=== PATIENT | female | born 1955 | race Caucasian/White ===

== ENCOUNTER 2016-06-05 17:43 | Emergency (ER) | payer BC ==
[~2016-06-05] VITALS: Ht 162.6 cm; Wt 80.4 kg
[~2016-06-05 17:43] MED LIST: AMIODARONE HCL200 MG PO; ASPIRIN325 MG PO; ATORVASTATIN CA40 MG PO; CHANTIX1 MG PO; EXTRA STRENGTH500 M1 PO; LASIX20 MG PO; LEVAQUIN500 MG PO; LO-DOSE ASPIRIN81 M2 PO; OXYCODONE HCL5 MG PO; PERI-COLACE TA1 EACH PO; TOPROL XL25 MG PO; TUMS500 MG PO; ZITHROMAX500 MG PO
[2016-06-05 18:24] LABS: EOSINOPHIL (%) 6.9 % (0-5); EOSINOPHIL COUNT 0.4 K/uL (0-0.3); HEMATOCRIT 40.6 % (36.0-46.0); IMMATURE GRANULOCYTE (%) 0.2 % (0.0-0.7); IMMATURE GRANULOCYTE COUNT 0.1 K/uL; LYMPHOCYTE COUNT 1.9 K/uL (1.0-2.8); MCH 31.2 PG (29.0-34.0); MCHC 34.2 G/DL (30.0-36.0); MONOCYTE (%) 8.3 % (3-12); MONOCYTE COUNT 0.4 K/uL (0-0.8); NEUTROPHIL (%) 46.7 % (45-76); NEUTROPHIL COUNT 2.4 K/uL (1.8-6.4); RBC DIS.WIDTH-CV 13.1 % (11.8-14.6); RBC DIS.WIDTH-SD 42.3 % (39-53); RED BLOOD COUNT 4.46 M/uL (3.80-5.20); WHITE BLOOD COUNT 5.1 K/uL (4.1-10.2)
[2016-06-05 18:47] LABS: CHLORIDE 107 mEq/L (99-109); POTASSIUM 3.7 mEq/L (3.7-5.4); SODIUM 141 mEq/L (136-147)
[2016-06-05 18:49] LABS: GLUCOSE 110 mg/dL (70-99)
[2016-06-05 18:50] LABS: ANION GAP 11 MEQ/L (2-14)
[2016-06-05 18:51] LABS: TOTAL BILIRUBIN 0.4 mg/dL (0.0-1.0)
[2016-06-05 18:52] LABS: ALKALINE PHOSPHATASE 129 IU/L (3-129)
[2016-06-05 18:53] LABS: GFR ESTIMATE (CALCULATED) > 59 mL/min/
[2016-06-05 18:54] LABS: UREA NITROGEN (BUN) 10 mg/dL (9-23)
[2016-06-05 18:56] LABS: LIPASE 53 U/L (1.0-51.0)
[2016-06-05 19:11] LABS: HEMATOLOGY COMMENT 1 UNABLE TO REPORT; USER ID WCD
[2016-06-05 19:12] LABS: MEAN PLAT.VOLUME 11.2 uM^3 (9.5-12.4)
[2016-06-05 20:17] LABS: ADD MIUA? YES; BILIRUBIN NEGATIVE; BLOOD NEGATIVE; COLOR YELLOW ((YELLOW)); GLUCOSE (STRIP) NEGATIVE; KETONES NEGATIVE; LEUKOCYTES LARGE; NITRITE NEGATIVE; PROTEIN (STRIP) NEGATIVE; SPECIFIC GRAVITY 1.009 (1.000-1.030); UROBILINOGEN 0.2 MG/DL (0.2-1.0)
[2016-06-05 20:22] LABS: BACTERIA RARE /HPF; EPITHELIAL CELLS RARE /HPF; MUCUS TRACE /LPF; RED BLOOD CELLS 0-5 /HPF (0-5)
[2016-06-05] MEDS ORDERED: ZOFRAN ODT4 MG PO (20:30)
[2016-06-05] MEDS ORDERED: ULTRACET1 TABLET PO (20:30)
[2016-06-05 20:50] VITALS: BP 150/70
== END 2016-06-05 20:51 | disposition home or self-care (01) ==
LOC: EME 17:43 → RME 17:43
PROVIDERS: Physician Assistant
DX: K80.70 Calculus of gallbladder and bile duct without cholecystitis without obstruction (principal); K82.4 Cholesterolosis of gallbladder; I25.10 Atherosclerotic heart disease of native coronary artery without angina pectoris; E78.5 Hyperlipidemia, unspecified; Z95.2 Presence of prosthetic heart valve; Z87.891 Personal history of nicotine dependence; Z88.0 Allergy status to penicillin
CPT/HCPCS: 76705; 80053; 81003; 83690; 85025; 87077; 87086; 87186; 99281; 99285; J1885; J2405; J3010; J7040

== ENCOUNTER 2016-06-28 09:14 | Day surgery (SDC) | payer BC ==
[~2016-06-28] VITALS: Ht 160 cm; Wt 79.4 kg
[~2016-06-28 09:14] MED LIST changes: +ULTRACET1 TABLET PO; +ZOFRAN ODT4 MG PO
[2016-06-28 10:37] VITALS: BP 162/84
[2016-06-28] MEDS ORDERED: COLACE100 MG PO (13:57)
[2016-06-28] MEDS ORDERED: PERCOCET 5/31 TABLET PO (13:57)
[2016-06-28 16:06] VITALS: BP 146/76
[2016-06-28 17:10] VITALS: BP 127/68
[2016-06-28 18:20] VITALS: BP 129/64
== END 2016-06-28 18:27 | disposition home or self-care (01) ==
LOC: SDC 09:14
PROC: 0WQF0ZZ Repair Abdominal Wall, Open Approach (ICD-10-PCS; principal; 2016-06-28)
PROC: 0FT44ZZ Resection of Gallbladder, Percutaneous Endoscopic Approach (ICD-10-PCS; principal; 2016-06-28)
DX: K80.10 Calculus of gallbladder with chronic cholecystitis without obstruction (principal); K42.9 Umbilical hernia without obstruction or gangrene; Z95.2 Presence of prosthetic heart valve; Z79.82 Long term (current) use of aspirin; Z82.49 Family history of ischemic heart disease and other diseases of the circulatory system; Z80.1 Family history of malignant neoplasm of trachea, bronchus and lung; Z87.891 Personal history of nicotine dependence; Z88.0 Allergy status to penicillin
CPT/HCPCS: 82150; 88304; J0744; J1100; J1170; J1200; J1580; J1885; J2250; J2405; J2710; J3010; J7050

== ENCOUNTER → 2017-10-18 | Outpatient (CLI) | payer BC ==
[~2017-10-18] MED LIST changes: +COLACE100 MG PO; +PERCOCET 5/31 TABLET PO
== END | disposition home or self-care (01) ==
LOC: RES 09:02
DX: J98.4 Other disorders of lung (principal)
CPT/HCPCS: 94060; 94726; 94729